=== PATIENT | male | born 1945 | race Caucasian/White ===

== ENCOUNTER 2018-01-06 13:55 | Emergency (ER) | payer MEDICARE, OTHER ==
[2018-01-06] MEDS ORDERED: DOXYCYCLINE HYCLATE 100 MG TABLET PO ONE (14:45)
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
[2018-01-06 16:28] VITALS: BP 143/77
--- NOTE | 2018-01-07 13:38 | XCELERA REPORT ---
[address] [place] [facility] [address] Lower Extremity Venous Evaluation Procedure: Color flow and duplex imaging of the veins of the right lower extremity as well as the left Common Femoral vein. Right Sided Venous Evaluation Normal vessel filling wall to wall, compression and augmentation as well as Colour flow down to the infrageniculate veins. Left Sided Venous Evaluation The left common femoral vein is fully compressible. Spontaneous and phasic flow is present in the left common femoral vein. Interpretation Summary No duplex evidence of DVT or obstruction in the right lower extremity nor in the left Common Femoral vein. Name: AMISHA GARCIA Age: 72 yrs Gender: Male : 1945 Patient Status: Preadmit Patient Location: ER Study Date: 01/06/2018 03:24 PM Reason For Study: rle pain swelling Ordering Physician: HEATHER LÓPEZ Performed By: Karolyn Silva : HEATHER LÓPEZ > Santhosh Lord
== END 2018-01-06 16:21 | disposition home or self-care (01) ==
LOC: ER 13:55
DX: L03.115 Cellulitis of right lower limb (principal); M79.89 Other specified soft tissue disorders; F17.210 Nicotine dependence, cigarettes, uncomplicated; I10 Essential (primary) hypertension; J44.9 Chronic obstructive pulmonary disease, unspecified
CPT/HCPCS: 99283; 93971 ×2; A9270

== ENCOUNTER 2019-02-05 11:39 | Emergency (ER) | payer OTHER, MEDICARE ==
--- NOTE | 2019-02-05 14:52 | ER Document Report ---
ED General - General Chief Complaint: Groin Pain Stated Complaint: GROIN PAIN TO KNEE Time Seen by Provider: 02/05/19 14:51 Primary Care Provider: YULY ANNE FNP-C [Primary Care Provider] - Follow up as needed Notes: Patient is a 73-year-old male that presents to the emergency department for chief complaint of low back pain and leg pain. Patient reports that he has been having left leg pain radiating from the back over the past 11 days. He did see a physician over at [facility] and they treated him with Tylenol threes, prednisone, Flexeril without much improvement of his symptoms. He went to another clinic and they gave him a shot, but did not give him any answers or do any advanced imaging, however he had x-rays that were negative according to the patient. Past Medical History: BPH, PTSD Past Surgical History: Appendectomy Social History: Admits to smoking cigarettes, occasional alcohol use, denies illicit drug use. Family History: Reviewed and noncontributory for presenting illness Allergies: Reviewed, see documented allergy list. REVIEW OF SYSTEMS: Other than noted above, the 12 point review of systems was reviewed with the patient and were negative, all pertinent findings are included in the HPI. PHYSICAL EXAMINATION: Vital signs reviewed, nursing noted reviewed. GENERAL: Patient appears to be in significant pain, particularly with movement of his back HEAD: Atraumatic, normocephalic. EYES: Eyes appear normal, extraocular movements intact, sclera anicteric, conjunctiva are normal. ENT: nares patent, oropharynx clear without exudates. Moist mucous membranes. NECK: Normal range of motion, supple without lymphadenopathy LUNGS: Breath sounds clear to auscultation bilaterally and equal. No wheezes rales or rhonchi. HEART: Regular rate and rhythm without murmurs Back: Mild tenderness palpation to the left-sided paraspinal musculature of the lumbar spine, there is pain with any range of motion particularly flexion of the lumbar spine. The thoracic spine appears unremarkable. Positive straight leg raise testing on the left. ABDOMEN: Soft, nontender, normoactive bowel sounds. No rebound, guarding, or rigidity. No masses appreciated. EXTREMITIES: Nontender, good range of motion, no pitting or edema. NEUROLOGICAL: No focal neurological deficits. Moves all extremities spontaneously Motor and sensory grossly intact on exam. Patient's strength is +4/5 on the left, compared to the right lower extremity. Particularly with extension of the hallucis longus tendon. Patient is able to lift both legs off the table with good strength with hip flexion. But he does have significant pain on the left side compared to the right. PSYCH: Normal mood, normal affect. SKIN: Warm, Dry, normal turgor, no rashes or lesions noted on exposed skin TRAVEL OUTSIDE OF THE [place] IN LAST 30 DAYS: No - Related Data Allergies/Adverse Reactions: No Known Allergies Allergy (Verified 02/05/19 12:00) Home Medications: [address] Past Medical History - Social History Smoking Status: Current Every Day Smoker Chew tobacco use (# tins/day): No Frequency of alcohol use: Social Drug Abuse: None Family History: Reviewed & Not Pertinent Patient has suicidal ideation: No Patient has homicidal ideation: No - Past Medical History Cardiac Medical History: Reports: Hx Hypertension - OCCASIONAL- NO MEDS Denies: Hx Coronary Artery Disease, Hx Heart Attack Pulmonary Medical History: Reports: Hx COPD Denies: Hx Asthma, Hx Bronchitis, Hx Pneumonia Neurological Medical History: Denies: Hx Cerebrovascular Accident, Hx Seizures Renal/ Medical History: Denies: Hx Peritoneal Dialysis Musculoskeletal Medical History: Denies Hx Arthritis Past Surgical History: Reports: Hx Appendectomy - Immunizations Hx Diphtheria, Pertussis, Tetanus Vaccination: Yes Physical Exam - Vital signs Vitals: Temp Pulse Resp BP Pulse Ox 98.4 F 78 16 150/93 H 94 02/05/19 11:52 02/05/19 11:52 02/05/19 11:52 02/05/19 11:52 02/05/19 11:52 Course - Re-evaluation Re-evalutation: Patient seen and examined, vital signs reviewed, on my exam the patient was having significant pain in his back with positive straight leg raising on the left, CT imaging was obtained to demonstrate advanced facet arthropathy in the patient's lumbar spine, without any acute findings. She was treated with IM Dilaudid, and was much improved afterwards, I advised that he follow-up with pain management for further evaluation and treatment, is given a prescription for oxycodone and naproxen and advised to follow-up if his symptoms worsened, or he had loss of function of his lower extremities to return to the emergency department sooner. Patient was agreeable to this plan of care and discharged home. - Vital Signs Vital signs: Temp Pulse Resp BP Pulse Ox 98.4 F 78 16 150/93 H 94 02/05/19 11:52 02/05/19 11:52 02/05/19 11:52 02/05/19 11:52 02/05/19 11:52 Discharge - Discharge Clinical Impression: Lumbar back pain with radiculopathy affecting left lower extremity Condition: Stable Disposition: HOME, SELF-CARE Instructions: Low Back Pain ([facility]) Additional Instructions: Please follow-up with the pain management clinic, as listed below, you may take the new prescribed pain medication, 1 to 2 tablets every 8 hours as needed for pain, and do not take this with the previously prescribed Tylenol 3's. You should also take the prescribed anti-inflammatory medication at least once a day which will also help with pain, additionally you can use warm or cool compresses such as a heating pad or ice to help relieve some of your pain as well. Prescriptions: Naproxen Sodium [Naprelan] 500 mg PO RTBIDP PRN #30 tablet.sa PRN Reason: back pain Oxycodone HCl [Oxycontin Ir 5 Mg Tablet] 1 tab PO Q6H PRN #20 tablet PRN Reason: For Pain Referrals: YULY ANNE FNP-C [Primary Care Provider] - Follow up as needed [facility] [Provider Group] - Follow up tomorrow (call for appointment. )
[2019-02-05] MEDS ORDERED: HYDROMORPHONE HCL INJ/PF 2 MG/ML AMPULE IM ONE (15:08)
[2019-02-05] MEDS ORDERED: ONDANSETRON 4 MG TAB.RAPDIS PO ONE (15:08)
[2019-02-05 17:04] VITALS: BP 124/86
--- NOTE | 2019-02-05 17:53 | RADIOLOGY REPORT (SQ) ---
EXAM DESCRIPTION: CT LUMBAR SPINE WITHOUT COMPLETED DATE/TIME: 02/05/2019 3:19 pm REASON FOR STUDY: left radicular back pain COMPARISON: None. TECHNIQUE: Axial images acquired through the lumbar spine without intravenous contrast. Images revi ewed with lung, soft tissue and bone windows. Reconstructed coronal and sagittal MPR images reviewed . All images stored on PACS. All CT scanners at this facility use dose modulation, iterative reconstruction, and/or weight based d osing when appropriate to reduce radiation dose to as low as reasonably achievable (ALARA). [facility]: Dose Right [facility]: CareDose [facility]: Dose Right [facility]: Teradose 4D [facility]: [employer] RADIATION DOSE: mGy. LIMITATIONS: None. FINDINGS: SEGMENTATION: Normal. No transitional anatomy. ALIGNMENT: Normal. VERTEBRAL BODIES: No fractures. No loss height. DISCS: There is circumferential disc bulging at L3-4 with facet and ligament hypertrophy. This resul ts in central canal stenosis. There is mild circumferential disc bulging at L4-5 with facet and liga ment hypertrophy with mild central canal stenosis. There is mild broad-based disc bulge at L5-S1 wit h no significant central canal or foraminal stenosis. PEDICLES, TRANSVERSE PROCESSES: No fractures. No dislocation. No acute findings. FACETS, POSTERIOR ELEMENTS: Hypertrophic facet changes are present at L3-4, L4-5, and L5-S1. HARDWARE: None in the spine. VISUALIZED RIBS: No fractures. SOFT TISSUES: No significant or acute finding in adjacent soft tissues. OTHER: No other significant finding. IMPRESSION: 1. Central canal stenoses at L3-4 and L4-5 secondary to circumferential disc bulging an d facet and ligament hypertrophy, greater at L3-4. 2. Facet arthropathy. TECHNICAL DOCUMENTATION: JOB ID: [id number] Quality ID # [id number]: Final reports with documentation of one or more dose reduction techniques (e.g., Au tomated exposure control, adjustment of the mA and/or kV according to patient size, use of iterative reconstruction technique) 2010 [employer]- All Rights Reserved Reading location - IP/workstation name: [email or web address]
== END 2019-02-05 17:05 | disposition home or self-care (01) ==
LOC: ER 11:39
DX: M47.26 Other spondylosis with radiculopathy, lumbar region (principal); I10 Essential (primary) hypertension; J44.9 Chronic obstructive pulmonary disease, unspecified; F17.210 Nicotine dependence, cigarettes, uncomplicated
CPT/HCPCS: 99284; 96372; 72131; S0119; J1170

== ENCOUNTER 2019-02-07 17:11 | Emergency (ER) | payer OTHER, MEDICARE ==
[2019-02-07] MEDS ORDERED: NA PHOS,M-B/NA PHOS,DI-BA (ADULT) 133 ML ENEMA PR ONE (18:37)
--- NOTE | 2019-02-07 18:56 | ER Document Report ---
ED General - General Chief Complaint: Constipation Stated Complaint: BOWEL ISSUES Time Seen by Provider: 02/07/19 18:21 TRAVEL OUTSIDE OF THE [place] IN LAST 30 DAYS: No - HPI Notes: 73-year-old male presents with severe left leg pain and obstipation. Patient describes a month of progressively worsening pain in his left leg extending from his groin medially down to his knee. He denies any overt injury. Has been seen here several times, has undergone CT imaging of his lumbar spine and was felt to possibly have some kind of degenerative disc disease. However, to me, he is adamant that is not in his back but in his groin and leg. He denies any falls or trauma. No prior history of venous thromboembolism or venous thrombosis. He has been on various opiate pain medications over the last month and states his last bowel movement was approximately 2 to 3 weeks ago. Describe some abdominal fullness and bloating but no rachid pain. No vomiting. No prior surgery. Moderate intensity, gradual onset, nonradiating. No other modifying factors, no other associated symptoms, no other provocative or palliative factors. - Related Data Allergies/Adverse Reactions: No Known Allergies Allergy (Verified 02/05/19 12:00) Past Medical History - Social History Smoking Status: Unknown if Ever Smoked Family History: Reviewed & Not Pertinent Patient has suicidal ideation: No Patient has homicidal ideation: No - Past Medical History Cardiac Medical History: Reports: Hx Hypertension - OCCASIONAL- NO MEDS Denies: Hx Coronary Artery Disease, Hx Heart Attack Pulmonary Medical History: Reports: Hx COPD Denies: Hx Asthma, Hx Bronchitis, Hx Pneumonia Neurological Medical History: Denies: Hx Cerebrovascular Accident, Hx Seizures Renal/ Medical History: Denies: Hx Peritoneal Dialysis Musculoskeletal Medical History: Denies Hx Arthritis Past Surgical History: Reports: Hx Appendectomy - Immunizations Hx Diphtheria, Pertussis, Tetanus Vaccination: Yes Review of Systems - Review of Systems Notes: Review of systems as in the history of present illness, otherwise negative x 10 systems. Physical Exam - Vital signs Vitals: Temp Pulse Resp BP Pulse Ox 98.5 F 81 17 150/86 H 95 02/07/19 17:17 02/07/19 17:17 02/07/19 17:17 02/07/19 17:17 02/07/19 17:17 - Notes Notes: General: Well developed . HEENT: Normocephalic, atraumatic. Pupils equal round reactive to light. No JVD. Chest: No trauma. Respiratory: Good air exchange, normal excursion. Cardiac: Regular rhythm. No murmurs or gallops. Abdomen: Soft, benign. Nondistended. Nontender. Back: No asymmetry or gross abnormality. Motor: Grossly normal power and tone. Neurologic: Alert, nonfocal. Cranial nerves II-12 are intact. Sensation intact. Vascular: Well perfused. Normal peripheral pulses. Skin: No petechiae or purpura. Extremities: There is discrete tenderness about the proximal medial thigh and at the junction of the groin. There is no palpable venous cord, 2+ pulses from the femoral distal, no edema or erythema, no significant erythema, adenopathy or mass. Range of motion intact and unremarkable. Course - Re-evaluation Re-evalutation: 02/07/19 18:55 73-year-old male with evolving leg pain of unclear etiology. I reviewed his records, he actually has had a ultrasound several weeks ago which was negative. Unlikely to have missed venous thrombosis, however, given his persistent symptoms and location will recheck ultrasound. Obtain plain films rule out occult hip or pelvic fracture, chemistries evaluate for underlying hypokalemia or left light abnormality, impaction check, enema and reevaluate. Acute abdominal series. 02/07/19 22:04 Labs reviewed, CBC grossly unremarkable, chemistries unremarkable with no evidence of acute hypokalemia or major left light abnormality.Patient underwent enema therapy, had several large stool balls in stool released. He feels mod estly better. I have done a digital rectal exam myself, I do not feel any evidence of acute impaction.Patient is discharged home, asked to minimize his usage of opiates, will initiate a bowel regimen with twice daily MiraLAX. Would benefit from pain management referral and outpatient follow-up. - Vital Signs Vital signs: Temp Pulse Resp BP Pulse Ox 98.5 F 81 17 150/86 H 95 02/07/19 17:17 02/07/19 17:17 02/07/19 17:17 02/07/19 17:17 02/07/19 17:17 - Laboratory Result Diagrams: 02/07/19 17:30 02/07/19 17:30 Laboratory results interpreted by me: 02/07/19 02/07/19 17:30 17:30 WBC 12.6 H RBC 5.57 H Sodium 136.4 L Chloride 97 L Carbon Dioxide 31 H BUN 32 H Discharge - Discharge Clinical Impression: Leg pain Qualifiers: Laterality: left Qualified Code(s): M79.605 - Pain in left leg Constipation Qualifiers: Constipation type: unspecified constipation type Qualified Code(s): K59.00 - Constipation, unspecified Condition: Stable Disposition: HOME, SELF-CARE Instructions: Constipation ([facility]), Leg Pain Nonspecific ([facility]) Additional Instructions: See your primary care doctor in follow-up over the next 24 hours. You should take [id number] MiraLAX twice daily for the next 7 days.
[2019-02-07 19:06] LABS: HEMATOCRIT 49.9 % (37.9-51.0); MEAN CORPUSCULAR HEMOGLOBIN 30.5 pg (27.0-33.4); MEAN CORPUSCULAR VOLUME 90 fl (80-97); PLATELET COUNT 188 10^3/uL (150-450); RED BLOOD COUNT 5.57 10^6/uL (4.35-5.55); RED CELL DISTRIBUTION WIDTH 13.5 % (11.5-14.0); WHITE BLOOD COUNT 12.6 10^3/uL (4.0-10.5)
[2019-02-07 19:20] LABS: ANION GAP 8 (5-19); BLOOD UREA NITROGEN 32 mg/dL (7-20); CALCIUM 9.1 mg/dL (8.4-10.2); CARBON DIOXIDE 31 mmol/L (22-30); CHLORIDE 97 mmol/L (98-107); GLUCOSE 99 mg/dL (75-110)
[2019-02-07] MEDS ORDERED: RINGERS SOLUTION,LACTATED 500 ML IV ONE (19:23)
--- NOTE | 2019-02-07 19:40 | RADIOLOGY REPORT (SQ) ---
EXAM DESCRIPTION: HIP LEFT AP/LATERAL COMPLETED DATE/TIME: 02/07/2019 7:04 pm REASON FOR STUDY: Pain, no trauma COMPARISON: None. NUMBER OF VIEWS: Two views. TECHNIQUE: AP pelvis and additional frog-leg view of the left hip. LIMITATIONS: None. FINDINGS: MINERALIZATION: Normal. LEFT HIP: No fracture or dislocation. No worrisome bone lesions. RIGHT HIP: No fracture or dislocation. No worrisome bone lesions. PUBIS AND ISCHIUM: No fracture. PELVIS: No fracture. SACRUM: No fracture or dislocation. No worrisome bone lesions. LOWER LUMBAR SPINE: Lumbar spondylosis. SOFT TISSUES: No findings. OTHER: Atherosclerotic change abdominal aorta and iliac vessels. IMPRESSION: NEGATIVE STUDY OF THE LEFT HIP AND PELVIS. NO RADIOGRAPHIC EVIDENCE OF ACUTE INJURY. TECHNICAL DOCUMENTATION: JOB ID: [id number] SC-69 2010 [employer]- All Rights Reserved Reading location - IP/workstation name: [email or web address]
--- NOTE | 2019-02-07 19:42 | RADIOLOGY REPORT (SQ) ---
EXAM DESCRIPTION: ACUTE ABDOMEN SERIES COMPLETED DATE/TIME: 02/07/2019 7:04 pm REASON FOR STUDY: OBSTIPATION COMPARISON: None. NUMBER OF VIEWS: Three views. TECHNIQUE: Frontal chest, supine abdomen and upright/decubitus abdomen radiographic images acquired. LIMITATIONS: None. FINDINGS: CHEST: Lungs clear of infiltrates. Chronic right pleural thickening. FREE AIR: None. No abnormal gas collections. BOWEL GAS PATTERN: Nonobstructive pattern. Moderate amount of fecal material throughout the colon co nsistent with constipation. Scattered small bowel gas. CALCIFICATIONS: No suspicious calcifications. HARDWARE: None in the abdomen. SOFT TISSUES: No gross mass or suggestion of organomegaly. BONES: Lumbar spondylosis. . OTHER: Calcified phlebolith right hemipelvis. Soft tissue density in pelvis consistent with urinary bladder. IMPRESSION: Constipation. Otherwise, normal abdominal series. TECHNICAL DOCUMENTATION: JOB ID: [id number] SC-69 2010 [employer]- All Rights Reserved Reading location - IP/workstation name: [email or web address]
[2019-02-07 22:51] VITALS: BP 158/109
--- NOTE | 2019-02-08 15:38 | VASCULAR PRELIM REPORT ---
Provider Note Provider Note: No obstruction or thrombosis noted in the left lower extremity veins on ultrasound. Negative for DVT.
--- NOTE | 2019-02-09 10:37 | XCELERA REPORT ---
[address] [address] Lower Extremity Venous Evaluation Procedure: The veins were evaluated for patency, spontaneous and phasic flow from the Common Femoral down to the infrageniculate vessles, on the left. Left Sided Venous Evaluation Normal vessel filling wall to wall, compression and augmentation as well as Colour flow down to the infrageniculate veins. Interpretation Summary Normal compression, patency, spontaneous and phasic flow of the left lower extremity veins. Name: AMISHA GARCIA Age: 73 yrs Gender: Male : 1945 Patient Status: Emergency Patient Location: ER Study Date: 02/07/2019 07:35 PM Reason For Study: LLE PAIN Ordering Physician: GONZALEZ MARQUEZ Performed By: Karolyn Silva : GONZALEZ MARQUEZ > Santhosh Lord
== END 2019-02-07 23:33 | disposition home or self-care (01) ==
LOC: ER 17:11
DX: K59.00 Constipation, unspecified (principal); M79.605 Pain in left leg; R14.0 Abdominal distension (gaseous); I10 Essential (primary) hypertension; Z79.899 Other long term (current) drug therapy; J44.9 Chronic obstructive pulmonary disease, unspecified
CPT/HCPCS: 99285; 96360; 36415; 85027; 80048; 93971 ×2; 74022; 73502; J3490; J7120

== ENCOUNTER → 2019-07-13 | Outpatient (CLI) | payer MEDICARE ==
--- NOTE | 2019-07-13 14:22 | RADIOLOGY REPORT (SQ) ---
EXAM DESCRIPTION: CT ABD/PELVIS WITH IV ORAL IMAGES COMPLETED DATE/TIME: 07/13/2019 1:35 pm REASON FOR STUDY: R10.9 UNSPECIFIED ABDOMINAL PAIN R10.9 UNSPECIFIED ABDOMINAL PAIN COMPARISON: None. TECHNIQUE: CT scan of the abdomen and pelvis performed with intravenous and oral contrast using rose vipin scanning technique with dynamic intravenous contrast injection. Images reviewed with lung, soft t issue, and bone windows. Reconstructed coronal and sagittal MPR images reviewed. Delayed images for e valuation of the urinary system also acquired. All images stored on PACS. All CT scanners at this facility use dose modulation, iterative reconstruction, and/or weight based d osing when appropriate to reduce radiation dose to as low as reasonably achievable (ALARA). [facility]: Dose Right [facility]: CareDose [facility]: Dose Right [facility]: Teradose 4D [facility]: Ziffi CONTRAST TYPE AND DOSE: contrast/concentration: Isovue 350.00 mg/ml; Total Contrast Delivered: 70.0 ml; Total Saline Delivered: 65.0 ml RENAL FUNCTION: GFR > 60. RADIATION DOSE: CT Rad equipment meets quality standard of care and radiation dose reduction techniq ues were employed. CTDIvol: 4.8 - 4.8 mGy. DLP: 481 mGy-cm. . LIMITATIONS: None. FINDINGS: LOWER CHEST: No significant findings. No nodules or infiltrates. LIVER: Normal size. No masses. No dilated ducts. SPLEEN: Old granulomatous disease. PANCREAS: No masses. No significant calcifications. No adjacent inflammation or peripancreatic fluid collections. Pancreatic duct not dilated. GALLBLADDER: No identified stones by CT criteria. No inflammatory changes to suggest cholecystitis. ADRENAL GLANDS: No significant masses or asymmetry. RIGHT KIDNEY AND URETER: No solid masses. No significant calcifications. No hydronephrosis or hyd roureter. LEFT KIDNEY AND URETER: No solid masses. No significant calcifications. No hydronephrosis or hydr oureter. AORTA AND VESSELS: No aneurysm. RETROPERITONEUM: No retroperitoneal adenopathy, hemorrhage or masses. BOWEL AND PERITONEAL CAVITY: Sigmoid diverticulosis. No obstruction. No visualized masses. No free f luid. No inflammatory changes or thickening of bowel wall. APPENDIX: Surgically absent. PELVIS: No significant masses. Normal bladder. No free fluid. ABDOMINAL WALL: No masses. No hernias. BONES: No significant or acute findings. OTHER: No other significant finding. IMPRESSION: Diverticulosis without evidence of diverticulitis. TECHNICAL DOCUMENTATION: JOB ID: [id number] Quality ID # [id number]: Final reports with documentation of one or more dose reduction techniques (e.g., Au tomated exposure control, adjustment of the mA and/or kV according to patient size, use of iterative reconstruction technique) 2010 [employer]- All Rights Reserved Reading location - IP/workstation name: [facility] [email or web address]
== END ==
LOC: RAD 12:51
PROVIDERS: ATTEND Surgery
DX: K57.30 Diverticulosis of large intestine without perforation or abscess without bleeding (principal); R10.9 Unspecified abdominal pain
CPT/HCPCS: 74177; 82565

== ENCOUNTER → 2019-07-24 | Outpatient (CLI) | payer MEDICARE, OTHER ==
[2019-07-24 12:06] LABS: ALBUMIN 4.5 g/dL (3.5-5.0); ALKALINE PHOSPHATASE 227 U/L (38-126); ASPARTATE AMINO TRANSFERASE 68 U/L (17-59); BILIRUBIN,DIRECT 0.2 mg/dL (0.0-0.4); BILIRUBIN,TOTAL 0.8 mg/dL (0.2-1.3); TOTAL PROTEIN 6.2 g/dL (6.3-8.2)
== END ==
LOC: OD 10:57
PROVIDERS: ATTEND Surgery
DX: R94.5 Abnormal results of liver function studies (principal); R17 Unspecified jaundice
CPT/HCPCS: 36415; 80076

== ENCOUNTER 2019-08-27 14:19 | Emergency (ER) | payer OTHER, MEDICARE ==
--- NOTE | 2019-08-27 14:41 | ER Document Report ---
ED Medical Screen (RME) - General Chief Complaint: Abdominal Pain Stated Complaint: ABDOMINAL PAIN Time Seen by Provider: 08/27/19 14:39 Primary Care Provider: TIMUR JAQUEZ MD [Primary Care Provider] - Follow up as needed Notes: HPI: 74-year-old male with history of gallstones and biliary colic diagnosed [address] Jaquez in clinic presenting for recurrent and worsening upper abdominal pain. Has not had a definitive fever but has had chills, occasional jaundice and darkening of his urine. Reports the pain is been worse over the last 2 days but has been somewhat intermittent in nature no chest pain shortness of breath PHYSICAL EXAMINATION: Mild tenderness through the upper abdomen on palpation. Not tachycardic I have greeted and performed a rapid initial assessment of this patient. A comprehensive ED assessment and evaluation of the patient, analysis of test results and completion of medical decision making process will be conducted by an additional ED providers. TRAVEL OUTSIDE OF THE [place] IN LAST 30 DAYS: No - Related Data Allergies/Adverse Reactions: No Known Allergies Allergy (Verified 08/27/19 14:36) Past Medical History - Past Medical History Cardiac Medical History: Reports: Hx Hypertension - OCCASIONAL- NO MEDS Denies: Hx Coronary Artery Disease, Hx Heart Attack Pulmonary Medical History: Reports: Hx COPD Denies: Hx Asthma, Hx Bronchitis, Hx Pneumonia Neurological Medical History: Denies: Hx Cerebrovascular Accident, Hx Seizures Renal/ Medical History: Denies: Hx Peritoneal Dialysis Musculoskeltal Medical History: Denies Hx Arthritis Past Surgical History: Reports: Hx Appendectomy - Immunizations Hx Diphtheria, Pertussis, Tetanus Vaccination: Yes Physical Exam - Vital signs Vitals: Temp Pulse Resp BP Pulse Ox 98.3 F 92 18 103/71 95 08/27/19 14:22 08/27/19 14:22 08/27/19 14:22 08/27/19 14:22 08/27/19 14:22 Course - Vital Signs Vital signs: Temp Pulse Resp BP Pulse Ox 98.3 F 92 18 103/71 95 08/27/19 14:22 08/27/19 14:22 08/27/19 14:22 08/27/19 14:22 08/27/19 14:22 Doctor's Discharge - Discharge Referrals: TIMUR JAQUEZ MD [Primary Care Provider] - Follow up as needed
[2019-08-27 15:09] LABS: APPEARANCE,URINE CLEAR; BILIRUBIN,URINE NEGATIVE (NEGATIVE); COLOR,URINE AMBER; GLUCOSE, URINE NEGATIVE (NEGATIVE); KETONES,URINE NEGATIVE (NEGATIVE); LEUKOCYTE ESTERASE,URINE NEGATIVE (NEGATIVE); NITRITE,URINE NEGATIVE (NEGATIVE); PROTEIN,URINE NEGATIVE (NEGATIVE); URINE SPECIFIC GRAVITY 1.003
[2019-08-27 15:28] LABS: ABSOLUTE EOSINOPHILS # (AUTO) 0.1 10^3/uL (0.0-0.6); ABSOLUTE LYMPHOCYTES (AUTO) 0.6 10^3/uL (0.5-4.7); ABSOLUTE MONOCYTES (AUTO) 0.4 10^3/uL (0.1-1.4); ABSOLUTE NEUT (AUTO) 5.7 10^3/uL (1.7-8.2); BASOPHILS % (AUTO) 0.4 % (0-2); EOSINOPHILS % (AUTO) 0.9 % (0-6); HEMATOCRIT 45.7 % (37.9-51.0); HEMOGLOBIN 15.9 g/dL (13.5-17.0); LYMPHOCYTES % (AUTO) 9.5 % (13-45); MEAN CORPUSCULAR HEMOGLOBIN 32.3 pg (27.0-33.4); MEAN CORPUSCULAR HGB CONC 34.8 g/dL (32.0-36.0); MEAN CORPUSCULAR VOLUME 93 fl (80-97); MONOCYTES % (AUTO) 6.1 % (3-13); PLATELET COUNT 174 10^3/uL (150-450); RED BLOOD COUNT 4.92 10^6/uL (4.35-5.55); SEGMENTED NEUTROPHILS % (AUTO) 83.1 % (42-78); TOTAL CELLS COUNTED % (AUTO) 100 %; WHITE BLOOD COUNT 6.8 10^3/uL (4.0-10.5)
[2019-08-27 15:44] LABS: ALBUMIN 4.3 g/dL (3.5-5.0); ALKALINE PHOSPHATASE 387 U/L (38-126); ANION GAP 8 (5-19); ASPARTATE AMINO TRANSFERASE 321 U/L (17-59); BILIRUBIN,DIRECT 6.1 mg/dL (0.0-0.4); BILIRUBIN,TOTAL 8.1 mg/dL (0.2-1.3); BLOOD UREA NITROGEN 14 mg/dL (7-20); CALCIUM 9.2 mg/dL (8.4-10.2); CARBON DIOXIDE 30 mmol/L (22-30); CHLORIDE 96 mmol/L (98-107); GLUCOSE 108 mg/dL (75-110); POTASSIUM 3.9 mmol/L (3.6-5.0); TOTAL PROTEIN 6.7 g/dL (6.3-8.2)
--- NOTE | 2019-08-27 16:44 | RADIOLOGY REPORT (SQ) ---
EXAM DESCRIPTION: U/S ABDOMEN LIMITED W/O DOP IMAGES COMPLETED DATE/TIME: 08/27/2019 4:33 pm REASON FOR STUDY: ruq pain COMPARISON: None. TECHNIQUE: Dynamic and static grayscale images acquired of the abdomen and recorded on PACS. Additio nal selected color Doppler and spectral images recorded. LIMITATIONS: Limited visualization. Poor acoustical window FINDINGS: PANCREAS: No masses. Visualized pancreatic duct normal caliber. LIVER: Normal size Echo texture normal. No focal masses. LIVER VASCULATURE: Normal directional flow of the main portal vein and hepatic veins. GALLBLADDER: Sludge. No stones. Normal wall thickness. No pericholecystic fluid. ULTRASOUND-DETECTED GUTIERREZ'S SIGN: Negative. INTRAHEPATIC DUCTS AND COMMON DUCT: No intrahepatic biliary dilatation. Common bile duct mildly dila rosy for age at 9 to 10 mm. INFERIOR VENA CAVA: Normal flow. AORTA: No aneurysm. RIGHT KIDNEY: Normal size. Normal echogenicity. No solid or suspicious masses. No hydronephros is. No calcifications. PERITONEAL AND RIGHT PLEURAL SPACE: No ascites or effusions. OTHER: No other significant findings. IMPRESSION: Mild dilatation of the common bile duct without visualized common bile duct stones or am pullary mass. TECHNICAL DOCUMENTATION: JOB ID: [id number] 2010 [employer]- All Rights Reserved Reading location - IP/workstation name: [email or web address]
--- NOTE | 2019-08-27 17:07 | ER Document Report ---
ED GI/ - General Chief Complaint: Abdominal Pain Stated Complaint: ABDOMINAL PAIN Time Seen by Provider: 08/27/19 14:39 Primary Care Provider: TIMUR PADGETT MD [ACTIVE STAFF] - Follow up as needed Mode of Arrival: Ambulatory Information source: Patient Notes: 74-year-old male presented to ED for complaint of history biliary colic. He states he was seen by the surgeon in the clinic about a month ago but because of the covid virus they did not remove the gallbladder because it was not an emergency. He states now he has been having fevers and chills for the last 2 days pain has increased over the last month he has been jaundiced for about 2 to 3 days. He states the pain does get better at times but it is very bad at times. He states he has quit drinking since he was seen here a month ago because he was told he had to quit drinking right away. He states he has had some nausea and vomiting. He states he does not eat because of the nausea and vomiting. He states he does continue to smoke a pack a day. He is alert oriented respirations regular nonlabored speaking in full sentences. I did speak with Dr. Helm who is the surgeon lead quality control technician. He states that if I can get an ERCP done by Dr. Muniz today or tomorrow that he can be admitted to medicine for the surgery but he had to have an ERCP first. He states he also will need a CT IV contrasted to be sure there is no pancreatic mass. He states that I cannot get GI to do the ERCP he will need to be transferred. TRAVEL OUTSIDE OF THE [place] IN LAST 30 DAYS: No - HPI Patient complains to provider of: Abdominal pain, Vomiting - jaundice, Other - Right upper quadrant fever chills Onset: Other - Intermittently for the last month Timing/Duration: Intermittent Quality of pain: Sharp Severity at maximum: Moderate Severity in ED: Mild Pain Level: 1 Location: RUQ Associated symptoms: Nausea, Vomiting Exacerbated by: Food Relieved by: Denies Similar symptoms previously: Yes Recently seen / treated by doctor: Yes - Related Data Allergies/Adverse Reactions: No Known Allergies Allergy (Verified 08/27/19 14:36) Past Medical History - General Information source: Patient - Social History Smoking Status: Current Every Day Smoker Cigarette use (# per day): Yes - Pack per day Chew tobacco use (# tins/day): No Frequency of alcohol use: None - States he quit drinking a month ago Drug Abuse: None Family History: Reviewed & Not Pertinent Patient has homicidal ideation: No - Past Medical History Cardiac Medical History: Reports: Hx Hypertension - OCCASIONAL- NO MEDS Pulmonary Medical History: Reports: Hx COPD EENT Medical History: Reports: None Neurological Medical History: Reports: None Renal/ Medical History: Reports: None Malignancy Medical History: Reports None GI Medical History: Reports: Other - Biliary colic Musculoskeletal Medical History: Reports None Skin Medical History: Reports None Psychiatric Medical History: Reports: None Traumatic Medical History: Reports: None Infectious Medical History: Reports: None Past Surgical History: Reports: Hx Appendectomy - Immunizations Hx Diphtheria, Pertussis, Tetanus Vaccination: Yes Review of Systems - Review of Systems Constitutional: No symptoms reported EENT: No symptoms reported Cardiovascular: No symptoms reported Respiratory: No symptoms reported Gastrointestinal: Abdominal pain - Right upper quadrant, Nausea, Vomiting Genitourinary: No symptoms reported Male Genitourinary: No symptoms reported Musculoskeletal: No symptoms reported Skin: No symptoms reported Hematologic/Lymphatic: No symptoms reported Neurological/Psychological: No symptoms reported -: Yes All other systems reviewed and negative Physical Exam - Vital signs Vitals: Temp Pulse Resp BP Pulse Ox 98.3 F 92 18 103/71 95 08/27/19 14:22 08/27/19 14:22 08/27/19 14:22 08/27/19 14:22 08/27/19 14:22 Interpretation: Normal - General General appearance: Appears well, Alert - HEENT Head: Normocephalic, Atraumatic Eyes: Normal Pupils: PERRL - Respiratory Respiratory status: No respiratory distress Chest status: Nontender Breath sounds: Normal Chest palpation: Normal - Cardiovascular Rhythm: Regular Heart sounds: Normal auscultation Murmur: No - Abdominal Inspection: Normal Distension: No distension Bowel sounds: Normal Tenderness: Tender - Right upper quadrant. No: Mays's sign, Guarding, Rebound Organomegaly: No organomegaly - Back Back: Normal, Nontender - Extremities General upper extremity: Normal inspection, Nontender, Normal color, Normal ROM, Normal temperature General lower extremity: Normal inspection, Nontender, Normal color, Normal ROM, Normal temperature, Normal weight bearing. No: Yoly's sign - Neurological Neuro grossly intact: Yes Cognition: Normal Orientation: AAOx4 [place] Coma Scale Eye Opening: Spontaneous [place] Coma Scale Verbal: Oriented Kate Coma Scale Motor: Obeys Commands Kate Coma Scale Total: 15 Speech: Normal Motor strength normal: LUE, RUE, LLE, RLE Sensory: Normal - Psychological Associated symptoms: Normal affect, Normal mood - Skin Skin Temperature: Warm Skin Moisture: Dry Skin Color: Normal Course - Re-evaluation Re-evalutation: 08/27/19 17:[address] Gamboa he states his attending is Dr. Jacobo. He has accepted the patient to be transferred to the medical floor at [facility]. I have reviewed the labs, ultrasound, and vital signs. He will be transferred when a bed is available. His transfer diagnosis is biliary co lic, elevated LFTs, possible CBD obstruction. Patient does have right upper quadrant tenderness.. 08/27/19 18:58 Transportation is in route from [facility] transfer the patient to [facility] where he will see a Dr. Jacobo resolution of his elevated liver enzymes, biliary colic, and possible CBD obstruction. Patient denies any discomfort at this time. He denies any nausea or vomiting. He states he is comfortable at this time. He does have IV fluids going until the transportation gets here as he is n.p.o. 08/27/19 20:22 Transport is in the room to transport patient to [facility]. Patient states he is still comfortable he is not having pain at this time. He states he is not nauseated or vomiting. He states he is very thirsty but I have explained to him he cannot have anything to eat or drink. He has had IV fluids going since it was ordered earlier this will be disconnected for his transport to [facility]. Patient is stable at this time. - Vital Signs Vital signs: Temp Pulse Resp BP Pulse Ox 98.5 F 70 19 117/81 94 08/27/19 20:39 08/27/19 20:39 08/27/19 20:39 08/27/19 20:39 08/27/19 20:39 - Laboratory Result Diagrams: 08/27/19 15:05 08/27/19 15:05 Laboratory results interpreted by me: 08/27/19 08/27/19 08/27/19 14:52 15:05 15:05 Lymph % (Auto) 9.5 L Seg Neutrophils % 83.1 H Sodium 133.8 L Chloride 96 L Total Bilirubin 8.1 H Direct Bilirubin 6.1 H AST 321 H ALT 490 H Alkaline Phosphatase 387 H Urine Urobilinogen 2.0 H - Diagnostic Test Radiology reviewed: Image reviewed, Reports reviewed Discharge - Discharge Clinical Impression: Biliary colic, Elevated LFTs, possible cbd obstruction Disposition: [facility] Referrals: TIMUR PADGETT MD [ACTIVE STAFF] - Follow up as needed
[2019-08-27] MEDS ORDERED: NORMAL SALINE 1000 ML 1,000 ML IV ONE (17:46)
[2019-08-27 20:39] VITALS: BP 117/81
--- NOTE | 2019-08-27 22:58 | EKG REPORT ---
SEVERITY:- ABNORMAL ECG - SINUS RHYTHM BIATRIAL ABNORMALITIES BORDERLINE T ABNORMALITIES, INFERIOR LEADS : Confirmed by: Santo Garay 27-Aug-2019 22:57:22
== END 2019-08-27 20:40 | disposition short-term general hospital (02) ==
LOC: ER 14:19
DX: K80.50 Calculus of bile duct without cholangitis or cholecystitis without obstruction (principal); R10.11 Right upper quadrant pain; R10.811 Right upper quadrant abdominal tenderness; R50.9 Fever, unspecified; R11.2 Nausea with vomiting, unspecified; R74.8 Abnormal levels of other serum enzymes; F17.210 Nicotine dependence, cigarettes, uncomplicated; I10 Essential (primary) hypertension; J44.9 Chronic obstructive pulmonary disease, unspecified; Z90.49 Acquired absence of other specified parts of digestive tract
CPT/HCPCS: 93005; 99285; 96360; 96361; 36415; 83690; 85025; 80053; 81001; 84484; 76705; 93010; J7030